=== PATIENT | male | born 1975 | race Caucasian/White ===

== ENCOUNTER 2019-04-23 13:32 | Emergency (ER) | payer BC ==
[2019-04-23 13:47] VITALS: BP 118/69; PULSE 80; TEMP 97.6; BMI 27.2
== END 2019-04-23 15:30 | disposition left against medical advice (07) ==
LOC: JER 13:32
DX: Z53.21 Procedure and treatment not carried out due to patient leaving prior to being seen by health care provider (principal)
CPT/HCPCS: 99281-25